=== PATIENT | male | born 1995 | race American Indian/Alaskan Native ===

== ENCOUNTER 2016-05-16 09:02 | Emergency (ER) | payer SELFPAY ==
[2016-05-16 09:11] VITALS: BP 121/75
--- NOTE | 2016-05-16 14:03 | Emergency Department Report ---
HPI - General Chief Complaint: Skin/Abscess/Foreign Body Time Seen by Provider: 05/16/16 13:03 - HPI HPI: 20-year-old female presents today with a possible abscess of his left cheek. Patient states that it started 2 days ago as a knot and has worsened. Pain that comes and goes. Denies eye pain, vision change. Denies drainage or bleeding. Patient states that he took his aunt's antibiotics, name unknown, without relief. Denies fever, chills, nausea, vomiting, chest pain, shortness of breath, abdominal pain. ED Past Medical Hx - Past Medical History Previous Medical History?: No - Surgical History Additional Surgical History: R forearm - Social History Smoking Status: Current Every Day Smoker Substance Use Type: None - Medications Home Medications: Home Medications Medication Instructions Recorded Confirmed Last Taken Type Acetaminophen/Codeine [Tylenol #3] 1 tab PO Q6H PRN #16 tab 07/25/15 Unknown Rx Cephalexin [Keflex] 500 mg PO QID #20 cap 05/16/16 Unknown Rx Sulfamethoxazole/Trimethoprim 1 each PO BID #10 tablet 05/16/16 Unknown Rx [Bactrim DS TAB] traMADol [Ultram 50 MG tab] 50 mg PO Q6HR PRN #7 tablet 05/16/16 Unknown Rx ED Review of Systems ROS: Stated complaint: LEFT SIDE OF FACE SWELLING Other details as noted in HPI Constitutional: denies: chills, fever, malaise Eyes: other (left periorbital swelling). denies: eye pain, eye discharge, vision change ENT: denies: ear pain, throat pain, congestion Respiratory: denies: cough, shortness of breath, wheezing Cardiovascular: denies: chest pain, palpitations Endocrine: no symptoms reported Gastrointestinal: denies: abdominal pain, nausea, vomiting Skin: lesions Neurological: denies: headache, weakness Physical Exam - Physical Exam Vital Signs: Vital Signs 05/16/16 09:06 Temperature 98.7 F Pulse Rate 62 Respiratory 16 Rate Blood Pressure 121/75 O2 Sat by Pulse 99 Oximetry Physical Exam: GENERAL: The patient is well-developed and well-nourished. Patient is in NAD. SKIN: A nonfluctuant, indurated 1.5 cm abscess noted over the left cheek. No drainage or bleeding noted. HEAD: Normocephalic. Atraumatic. EYES: Extraocular motions are intact, PERRL. No conjunctival injection noted. Positive for left periorbital swelling. NOSE: Normal nasal mucosa with no nasal discharge. THROAT: No erythema, swelling or exudates. NECK: Supple, nontender, without lymphadenopathy. CHEST/LUNGS: Clear to auscultation throughout. HEART/CARDIOVASCULAR: Regular rate and rhythm. ABDOMEN: Abdomen is soft, nontender. No guarding or rebound tenderness. EXTREMITIES: Peripheral pulses intact. Capillary refill less than 2 seconds. ED Course Vital Signs 05/16/16 09:06 Temperature 98.7 F Pulse Rate 62 Respiratory 16 Rate Blood Pressure 121/75 O2 Sat by Pulse 99 Oximetry ED Medical Decision Making - Lab Data Vital Signs 05/16/16 09:06 Temperature 98.7 F Pulse Rate 62 Respiratory 16 Rate Blood Pressure 121/75 O2 Sat by Pulse 99 Oximetry - Medical Decision Making 20-year-old male presents today with abscess of his left cheek. Unable to drain abscess using an 18-gauge needle due to non-fluctuance. Consulted with Dr. Gutierrez. Patient is in no acute distress at this time. He will be discharged home and is encouraged to follow up with a primary care provider. He will be sent home on Keflex, Bactrim and Toradol and is encouraged to return to the emergency room for any worsening symptoms. Critical care attestation.: If time is entered above; I have spent that time in minutes in the direct care of this critically ill patient, excluding procedure time. ED Disposition Clinical Impression: Abscess Disposition: DISCHARGED TO HOME OR SELFCARE Is pt being admited?: No Does the pt Need Aspirin: No Condition: Stable Instructions: Abscess (ED) Additional Instructions: Follow-up with primary care provider. Return to the emergency department if symptoms worsen. Prescriptions: Sulfamethoxazole/Trimethoprim [Bactrim DS TAB] 1 each PO BID #10 tablet Cephalexin [Keflex] 500 mg PO QID #20 cap traMADol [Ultram 50 MG tab] 50 mg PO Q6HR PRN #7 tablet PRN Reason: Pain Referrals: PRIMARY CARE, [Primary Care Provider] - 3-5 Days JUNIOR RAMIREZ MD [Staff Physician] - 3-5 Days [facility] [Outside] - 3-5 Days Forms: Work/School Release Form(ED) Time of Disposition: 14:05
== END 2016-05-16 14:18 | disposition home or self-care (01) ==
LOC: ED 09:02
DX: L02.01 Cutaneous abscess of face (principal); F17.200 Nicotine dependence, unspecified, uncomplicated
CPT/HCPCS: 99282